=== PATIENT | female | born 1970 | race Caucasian/White ===

== ENCOUNTER 2017-03-12 10:31 | Emergency (ER) | payer MEDICAID ==
[~2017-03-12] VITALS: Ht 157.5 cm; Wt 86.3 kg
[2017-03-12 11:00] VITALS: BP 140/86
== END 2017-03-12 12:31 | disposition home or self-care (01) ==
LOC: ED 11:30
DX: B34.9 Viral infection, unspecified (principal); J45.909 Unspecified asthma, uncomplicated
CPT/HCPCS: 71020; 99284

== ENCOUNTER 2019-03-25 12:10 | Emergency (ER) | payer MEDICAID ==
[~2019-03-25] VITALS: Ht 160 cm; Wt 88.0 kg
--- NOTE | 2019-03-25 13:46 | NUR ---
PT. WAS GIVEN DISCHARGE INSTRUCTIONS AND SCRIPTS WITH UNDERSTANDING VERBALIZED ALONG WITH WILLINGNESS TO COMPLY. PT. WAS AMBULATORY TO THE DISCHARGE DESK. VSS.
[2019-03-25 13:47] VITALS: BP 121/84
== END 2019-03-25 13:50 | disposition home or self-care (01) ==
LOC: ED 13:32
DX: G89.29 Other chronic pain (principal); M54.5 Low back pain
CPT/HCPCS: 99283

== ENCOUNTER → 2020-01-22 | Outpatient (CLI) | payer MEDICAID ==
[~2020-01-22] MED LIST: OMNIPAQUE 350 MG/ML, 100ML BOTTLE ONE
== END | disposition home or self-care (01) ==
LOC: RAD 17:29
PROVIDERS: ATTEND Family Medicine
DX: R31.9 Hematuria, unspecified (principal); R10.9 Unspecified abdominal pain; Z90.710 Acquired absence of both cervix and uterus
CPT/HCPCS: 74177; Q9967

== ENCOUNTER 2020-02-08 23:24 | Emergency (ER) | payer MEDICAID ==
[~2020-02-08] VITALS: Ht 160 cm; Wt 88.7 kg
[2020-02-08 23:27] VITALS: BP 175/106
[2020-02-08] MEDS ORDERED: LEVE100020 PO (23:40)
[2020-02-08] MEDS ORDERED: CHOL10003 PO (23:40)
--- NOTE | 2020-02-08 23:55 | NUR ---
PIV STARTED LABS DRAWN FLUIDS INFUSING NADN
[2020-02-08] MEDS ORDERED: ONDANSETRON 2MG/ML, 2ML ONE (23:56)
[2020-02-08] MEDS ORDERED: MORPHINE SULFATE 4 MG/ML, 1ML ONE (23:57)
[2020-02-09] MEDS ORDERED: MORPHINE SULFATE 4 MG/ML, 1ML IVPush PRN
[2020-02-09] MEDS ORDERED: ONDANSETRON 2MG/ML, 2ML IVPush ONE
[2020-02-09] MEDS ORDERED: SODIUM CHLORIDE 0.9% 1,000ML IVBOLUS ONE
--- NOTE | 2020-02-09 | NUR ---
THIS IS A 49Y F THAT COMES IN TONIGHT FOR ABD PAIN AND BACK PAIN. PT WAS SEEN RECENTLY FOR THIS AND GOTTEN A CT SCAN THAT SHOWED "SOMETHING ON MY LIVER" PT ALSO STS SHE HAS AN ALLERGY TO SOME MEDICATION SHE GOT AT [facility]. PT SHOUTING AND "WRITHING IN PAIN" PT GIVEN MORPHINE FOR PAIN PER MAR. PT HOWEVER IS REFUSING LARISSAAN, PROVIDER TO BE UPDATED.
[2020-02-09] MEDS ORDERED: METOCLOPRAMIDE 5 MG/ML, 2ML ONE (00:04)
--- NOTE | 2020-02-09 00:05 | NUR ---
ADDITIONAL ORDER FOR REGLAN AT THIS TIME
--- NOTE | 2020-02-09 00:06 | NUR ---
PT REFUSING REGLAN SHE MIGHT BE ALLERGIC TO THIS ONE.
[2020-02-09 00:10] LABS: BASOPHILS % (AUTO) 0 % (0-1); EOSINOPHILS % (AUTO) 1 % (1-7); LYMPHOCYTES % (AUTO) 32 % (22-44); MEAN CORPUSCULAR HEMOGLOBIN 32.9 pg (27.0-34.8); MEAN CORPUSCULAR HGB CONC 35.6 g/dL (32.4-35.8); MEAN PLATELET VOLUME 8.4 fL (7.4-10.4); MONOCYTES % (AUTO) 7 % (2-9); NEUTROPHILS % (AUTO) 59 % (42-75); PLATELET COUNT 278 x10^3/uL (130-400); RED BLOOD COUNT 4.74 x10^6/uL (3.82-5.3); RED CELL DISTRIBUTION WIDTH 13.7 % (9.6-15.2)
[2020-02-09 00:11] LABS: MD NO
[2020-02-09] MEDS ORDERED: PROMETHAZINE 25 MG/ML, 1ML ONE (00:13)
--- NOTE | 2020-02-09 00:16 | NUR ---
PT GIVEN PHENERGAN IM AT THIS TIME TOLERATED WELL
[2020-02-09 00:20] LABS: ALBUMIN 3.9 g/dL (3.4-5.0); ALKALINE PHOSPHATASE 90 U/L (45-117); ANION GAP 6 mmol/L (5-15); BILIRUBIN,TOTAL 1.3 mg/dL (0.2-1.0); CALCIUM 8.3 mg/dL (8.5-10.1); CHLORIDE 108 mmol/L (98-107); CREATININE 0.85 mg/dL (0.55-1.02)
[2020-02-09 00:23] LABS: ALANINE AMINOTRANSFERASE 45 U/L (12-78)
[2020-02-09 00:25] LABS: TOTAL PROTEIN 7.4 g/dL (6.4-8.2)
[2020-02-09] MEDS ORDERED: PROMETHAZINE 25 MG/ML, 1ML IM ONE (00:30)
[2020-02-09] MEDS ORDERED: METOCLOPRAMIDE 5 MG/ML, 2ML IVPush ONE (00:30)
--- NOTE | 2020-02-09 00:30 | NUR ---
PT CALLED SHOUTING FOR ADDITIONAL PAIN MEDS, WHEN ARRIVED TO ROOM PT STS SHE NO LONGER IS IN PAIN AND DOES NOT WANT MEDICATION AT THIS TIME. PT STS SHE NOW NEEDS TO USE THE RESTROOM, ASSISTED TO RESTROOM FOR UA.
[2020-02-09] MEDS ORDERED: MORPHINE SULFATE 4 MG/ML, 1ML ONE (00:31)
[2020-02-09 00:56] LABS: MICROSCOPIC AUTO
--- NOTE | 2020-02-09 01:19 | NUR ---
PT TO CT AT THIS TIME
--- NOTE | 2020-02-09 01:36 | NUR ---
PT BACK FROM CT
--- NOTE | 2020-02-09 02:23 | NUR ---
PT UP TO RESTROOM NO ASSIST REQ AT THIS TIME, PA TO ROOM TO RECHECK PT AND DISCUSS POC
== END 2020-02-09 02:54 | disposition home or self-care (01) ==
LOC: ED 23:54
DX: N13.2 Hydronephrosis with renal and ureteral calculous obstruction (principal); R10.31 Right lower quadrant pain; R10.11 Right upper quadrant pain; R63.0 Anorexia; J45.909 Unspecified asthma, uncomplicated; Z98.51 Tubal ligation status; Z90.710 Acquired absence of both cervix and uterus
CPT/HCPCS: 36415; 74176; 80053; 81001; 83690; 85025; 87086; 96361; 96372; 96374; 99285; J2270; J2550; J7030